=== PATIENT | male | born 1940 | race Caucasian/White ===

== ENCOUNTER 2016-11-16 16:25 | Inpatient (IN) | payer OTHER ==
[2016-11-16 18:38] LABS: BASOPHIL 0.5 % (0-2.0); EOSINOPHIL 0.1 % (0-4.5); MCH 30.6 pg (25.7-33.7); MCHC 32.8 g/dl (32.0-35.9); MEAN CELL VOLUME 93.4 fl (80-96); MEAN PLT VOLUME 9.4 fl (7.5-11.1); NEUTROPHILS 83.9 % (42.8-82.8); PLATELET COUNT 180 K/MM3 (134-434); RDW 17.4 % (11.9-15.9); WHITE BLOOD COUNT 6.9 K/mm3 (4.0-10.0)
[2016-11-16 18:56] LABS: INR 1.11 (0.82-1.09); PROTHROMBIN TIME (PATIENT) 12.2 SEC (9.98-11.88)
[2016-11-16 19:08] LABS: ALBUMIN 3.6 g/dl (3.4-5.0); ANION GAP 7 (8-16); CALCIUM 8.8 mg/dL (8.5-10.1); CO2 30 mmol/L (21-32); CREATININE 1.8 mg/dL (0.7-1.3); GLUCOSE,RANDOM 110 mg/dL (74-106); SGOT/AST 19 U/L (15-37); SGPT/ALT 35 U/L (12-78); TOT PROT 7.1 g/dl (6.4-8.2)
[2016-11-16 19:11] LABS: ALK PHOS 48 U/L (45-117); TROPONIN I < 0.02 ng/ml (0.00-0.05)
[2016-11-16 19:31] LABS: ARTERIAL BLD GAS O2 SATURATION 91.2 % (90-98.9); ARTERIAL BLOOD GAS BASE EXCESS 3.3 meq/l (-2-2); ARTERIAL BLOOD GAS HCO3 26.7 meq/L (22-26); ARTERIAL BLOOD GAS PO2 61.1 mmHg (70-100); ARTERIAL BLOOD GAS pH 7.46 (7.35-7.45)
[2016-11-16 19:32] LABS: ALLENS TEST POSITIVE; ART PUNCT SITE RIGHT RADIAL; LPM/O2% ROOM AIR; PT. ON O2? NO
[2016-11-16 19:33] LABS: METHEMOGLOBIN 0.7 % (0.4-1.5)
--- NOTE | 2016-11-16 19:45 | PDOC ---
History of Present Illness - General History Source: [facility] Records Exam Limitations: No Limitations - History of Present Illness Initial Comments: 11/16/16 20:05 The patient is a 76-year-old male from a senior living, with a significant past medical history of afib, CVA (lt middle cerebral artery stroke 2012), CHF, Dementia, hypothyroidism, who presents to the ED with a couple of months of worsening shortness of breath. Pt states that his symptoms are worse when he speaks and when he eats. The patient denies any fever, chills, cough, nausea, vomiting, diarrhea, or abdominal pain. The patient denies any chest pain or any lower extremity swelling. The patient denies any recent illness. <Allison Burgos - Last Filed: 11/16/16 20:04> - General History Source: Patient <Jaziel Medeiros - Last Filed: 11/20/16 20:01> - General Chief Complaint: Weakness Stated Complaint: DIFFICULTY BREATHING Time Seen by Provider: 11/16/16 19:18 Past History <Allison Burgos - Last Filed: 11/16/16 20:04> - Past Medical History Cardiac Disorders: Yes (a.fib) CVA: Yes (lt middle cerebral artery stroke 2012) CHF: Yes Dementia: Yes (MILD) Thyroid Disease: Yes (hypothyroid) - Surgical History Neurologic Surgery: Yes (CRANIOTOMY) - Psycho/Social/Smoking Cessation Hx Anxiety: No Suicidal Ideation: No Smoking History: Former smoker Have you smoked in the past 12 months: No Cigars Per Day: 1 Information on smoking cessation initiated: No 'Breaking Loose' booklet given: 03/14/16 Hx Alcohol Use: No Drug/Substance Use Hx: No Substance Use Type: None Hx Substance Use Treatment: No <Jaziel Medeiros - Last Filed: 11/20/16 20:01> - Past Medical History Allergies/Adverse Reactions: Allergies Allergy/AdvReac Type Severity Reaction Status Date / Time No Known Allergies Allergy Verified 11/16/16 16:44 Home Medications: Ambulatory Orders Cholecalciferol (Vitamin D3) [Vitamin D -] 400 unit PO DAILY 03/14/16 Testosterone Cypionate 200 mg IM ASDIR 03/14/16 Docusate Sodium [Colace -] 300 mg PO HS 03/21/16 Acetaminophen [Tylenol .Regular Strength -] 650 mg PO Q6H PRN #120 tablet Aclidinium [place] [Tudorza -] 1 puff IH BID #1 inhaler 03/29/16 Albuterol 0.083% Nebulizer Diana [Ventolin 0.083% Nebulizer Soln -] 1 amp NEB Q4H PRN #120 amp 03/29/16 Atorvastatin Ca [Lipitor] 10 mg PO HS #30 tablet 03/29/16 Rivaroxaban [Xarelto -] 15 mg PO DAILY #30 tablet 03/29/16 Budesonide/Formeterol Fumarate [SYMBICORT 160/4.5mcg -] 1 inh PO BID 05/17/16 Fludrocortisone Acetate 0.5 mg PO DAILY 05/17/16 Furosemide [Lasix -] 40 mg PO DAILY 05/17/16 Levomefolate/B6/B12/Algal Oil [Metanx Capsule] 1 each PO DAILY 05/17/16 Loratadine [Claritin] 10 mg PO DAILY 05/17/16 Polyethylene Glycol 3350 [Miralax 119 gm Btl -] 17 gm PO ASDIR 05/17/16 Artificial Tears Drops 1 drop OS BID 11/17/16 Carvedilol 6.25 mg PO BID 11/17/16 Cyclosporine Microemulsion 0.05 5ml BID 11/17/16 Fluticasone Prop 0.05% Nasal [Flonase -] 1 spray NS BID PRN 11/17/16 Hydrocortisone [Cortef -] 35 mg PO HS 11/17/16 Hydrocortisone [Cortef -] 40 mg PO DAILY 11/17/16 Levothyroxine [Synthroid -] 112 mcg PO DAILY 11/17/16 Potassium Chloride 20 meq PO DAILY 11/17/16 Review of Systems - Review of Systems Able to Perform ROS?: Yes Comments:: 11/16/16 20:05 CONSTITUTIONAL: Absent: fever, chills, diaphoresis, generalized weakness, malaise, loss of appetite HEENT: Absent: rhinorrhea, nasal congestion, throat pain, throat swelling, difficulty swallowing, mouth swelling, ear pain, eye pain, visual Changes CARDIOVASCULAR: Absent: chest pain, syncope, palpitations, irregular heart rate, lightheadedness , peripheral edema RESPIRATORY: Present: shortness of breath Absent: cough, dyspnea with exertion, orthopnea, wheezing, stridor, hemoptysis GASTROINTESTINAL: Absent: abdominal pain, abdominal distension, nausea, vomiting, diarrhea, constipation, melena, hematochezia GENITOURINARY: Absent: dysuria, frequency, urgency, hesitancy, hematuria, flank pain, genital pain MUSCULOSKELETAL: Absent: myalgia, arthralgia, joint swelling SKIN: Absent: rash, itching, pallor HEMATOLOGIC/IMMUNOLOGIC: Absent: easy bleeding, easy bruising, lymphadenopathy, frequent infections ENDOCRINE: Absent: unexplained weight gain, unexplained weight loss, heat intolerance, cold intolerance NEUROLOGIC: Absent: headache, focal weakness or paresthesias, dizziness, seizure, mental status changes, bladder or bowel incontinence PSYCHIATRIC: Absent: anxiety, depression, suicidal or homicidal ideation, hallucinations. <Allison Burgos - Last Filed: 11/16/16 20:04> *Physical Exam - Vital Signs Last Vital Signs Temp Pulse Resp BP Pulse Ox 97.5 F L 80 20 100/60 98 11/16/16 16:45 11/16/16 18:49 11/16/16 18:49 11/16/16 18:49 11/16/16 18:49 - Physical Exam Comments: 11/16/16 20:06 Awake and alert. No acute distress. HEENT: Normocephalic, atraumatic. PERRLA, EOMI. No conjunctival pallor. Sclera are non- icteric. Moist mucous membranes. Oropharynx is clear. NECK: Supple. Full ROM. No JVD. Carotid pulses 2+ and symmetric, without bruits. No thyromegaly. No lymphadenopathy. CARDIOVASCULAR: Regular rate and rhythm. No murmurs, rubs, or gallops. Distal pulses are 2+ and symmetric. PULMONARY: +Decreased breath sounds with faint crackles but his work of breathing is not strong. ABDOMINAL: Soft. Non-tender. Non-distended. No rebound or guarding. No organomegaly. Normoactive bowel sounds. MUSCULOSKELETAL Normal range of motion at all joints. No bony deformities or tenderness. No CVA tenderness. EXTREMITIES: No cyanosis. No clubbing. No edema. No calf tenderness. SKIN: Warm and dry. Normal capillary refill. No rashes. No jaundice. NEUROLOGICAL: Alert, awake, appropriate. Cooperative. Good eye contact. Appropriate mood and affect. <Allison Burgos - Last Filed: 11/16/16 20:04> - Vital Signs Last Vital Signs Temp Pulse Resp BP Pulse Ox 97.5 F L 80 20 100/60 98 11/16/16 16:45 11/16/16 18:49 11/16/16 18:49 11/16/16 18:49 11/16/16 18:49 <Jaziel Medeiros - Last Filed: 11/20/16 20:01> ED Treatment Course - LABORATORY CBC & Chemistry Diagram: 11/16/16 16:27 11/16/16 16:27 - ADDITIONAL ORDERS Additional order review: Laboratory Results 11/16/16 11/16/16 11/16/16 19:25 19:25 16:27 INR Puncture Site Right radial ABG pH 7.46 H ABG pCO2 at Pt Temp 37.8 ABG pO2 at Pt Temp 61.1 L ABG HCO3 26.7 H ABG O2 Sat (Measured) 91.2 ABG O2 Content 17.1 ABG Base Excess 3.3 H Osmin Test Positive Carboxyhemoglobin 1.3 Methemoglobin 0.7 O2 Delivery Device None Oxygen Flow Rate Room air PEEP 0.0 Sodium 140 Potassium 4.2 Chloride 103 Carbon Dioxide 30 Anion Gap 7 L BUN 17 D Creatinine 1.8 H D Creat Clearance w eGFR 36.97 Random Glucose 110 H D Calcium 8.8 Total Bilirubin 1.0 D AST 19 D ALT 35 Alkaline Phosphatase 48 Creatine Kinase 64 Troponin I < 0.02 B-Natriuretic Peptide 1468.92 H Total Protein 7.1 D Albumin 3.6 D 11/16/16 16:27 INR 1.11 Puncture Site ABG pH ABG pCO2 at Pt Temp ABG pO2 at Pt Temp ABG HCO3 ABG O2 Sat (Measured) ABG O2 Content ABG Base Excess Osmin Test Carboxyhemoglobin Methemoglobin O2 Delivery Device Oxygen Flow Rate PEEP Sodium Potassium Chloride Carbon Dioxide Anion Gap BUN Creatinine Creat Clearance w eGFR Random Glucose Calcium Total Bilirubin AST ALT Alkaline Phosphatase Creatine Kinase Troponin I B-Natriuretic Peptide Total Protein Albumin 11/16/16 16:27 RBC 4.49 MCV 93.4 MCHC 32.8 RDW 17.4 H D MPV 9.4 D Neutrophils % 83.9 H Lymphocytes % 10.1 D Monocytes % 5.4 Eosinophils % 0.1 D Basophils % 0.5 <Allison Burgos - Last Filed: 11/16/16 20:04> - LABORATORY CBC & Chemistry Diagram: 11/19/16 05:35 11/19/16 05:35 - ADDITIONAL ORDERS Additional order review: Laboratory Results 11/16/16 11/16/16 11/16/16 19:25 19:25 16:27 INR Puncture Site Right radial ABG pH 7.46 H ABG pCO2 at Pt Temp 37.8 ABG pO2 at Pt Temp 61.1 L ABG HCO3 26.7 H ABG O2 Sat (Measured) 91.2 ABG O2 Content 17.1 ABG Base Excess 3.3 H Osmin Test Positive Carboxyhemoglobin 1.3 Methemoglobin 0.7 O2 Delivery Device None Oxygen Flow Rate Room air PEEP 0.0 Sodium 140 Potassium 4.2 Chloride 103 Carbon Dioxide 30 Anion Gap 7 L BUN 17 D Creatinine 1.8 H D Creat Clearance w eGFR 36.97 Random Glucose 110 H D Calcium 8.8 Total Bilirubin 1.0 D AST 19 D ALT 35 Alkaline Phosphatase 48 Creatine Kinase 64 Troponin I < 0.02 B-Natriuretic Peptide 1468.92 H Total Protein 7.1 D Albumin 3.6 D 11/16/16 16:27 INR 1.11 Puncture Site ABG pH ABG pCO2 at Pt Temp ABG pO2 at Pt Temp ABG HCO3 ABG O2 Sat (Measured) ABG O2 Content ABG Base Excess Osmin Test Carboxyhemoglobin Methemoglobin O2 Delivery Device Oxygen Flow Rate PEEP Sodium Potassium Chloride Carbon Dioxide Anion Gap BUN Creatinine Creat Clearance w eGFR Random Glucose Calcium Total Bilirubin AST ALT Alkaline Phosphatase Creatine Kinase Troponin I B-Natriuretic Peptide Total Protein Albumin 11/16/16 16:27 RBC 4.49 MCV 93.4 MCHC 32.8 RDW 17.4 H D MPV 9.4 D Neutrophils % 83.9 H Lymphocytes % 10.1 D Monocytes % 5.4 Eosinophils % 0.1 D Basophils % 0.5 <Jaziel Medeiros - Last Filed: 11/20/16 20:01> Medical Decision Making - Medical Decision Making 11/16/16 19:56 Dr. Shoemaker was paged and notified via phone service. <Allison Burgos - Last Filed: 11/16/16 20:04> - Medical Decision Making 11/20/16 20:01 Dr. Medeiros: The scribe's documentation has been prepared under my direction and personally reviewed by me in its entirery. I confirm that the note above accurately reflects all work, treatment, procedures, and medical decision making performed by me. <Jaziel Medeiros - Last Filed: 11/20/16 20:01> *DC/Admit/Observation/Transfer - Attestations Scribe Attestion: 11/16/16 20:13 Documentation prepared by Allison Burgos, acting as medical record coder for Jaziel Medeiros MD. <Allison Burgos - Last Filed: 11/16/16 20:04> - Discharge Dispostion Admit: Yes <Jaziel Medeiros - Last Filed: 11/20/16 20:01> Diagnosis at time of Disposition: CHF (congestive heart failure), Weakness - Discharge Dispostion Disposition: AGAINST MEDICAL ADVICE - Referrals
[2016-11-16] MEDS ORDERED: FUROSEMIDE 40 MG/4 ML INJECTABLE VIAL IVPUSH ONE (19:53)
[2016-11-16] MEDS ORDERED: FUROSEMIDE 40 MG/4 ML INJECTABLE VIAL ONE (20:09)
[2016-11-16] MEDS ORDERED: ACETAMINOPHEN 325 MG TABLET (FP) PO PRN (21:14)
[2016-11-16] MEDS ORDERED: HEPARIN NA (PORCINE) 5,000 UNITS/ML 1ML VIAL SQ SCH (22:00)
[2016-11-16] MEDS: ATORVASTATIN CA 10 MG TABLET (FP) PO SCH (22:35)
[2016-11-16 23:02] LABS: URINE APPEARANCE CLEAR; URINE BILIRUBIN NEGATIVE (NEGATIVE); URINE BLOOD NEGATIVE (NEGATIVE); URINE COLOR STRAW; URINE GLUCOSE (UA) NEGATIVE (NEGATIVE); URINE KETONE NEGATIVE (NEGATIVE); URINE LEUK ESTERASE NEGATIVE (NEGATIVE); URINE NITRITE NEGATIVE (NEGATIVE); URINE PROTEIN NEGATIVE (NEGATIVE); URINE UROBILINOGEN NEGATIVE E.U./dl (0.2-1.0)
[2016-11-16 23:26] VITALS: BMI 32.1
[2016-11-17] MEDS ORDERED: HYDROCORTISONE SOD SUCCINATE 2 ML ONE (01:03)
[2016-11-17] MEDS: HYDROCORTISONE SOD SUCCINATE 100 MG/2 ML VIAL IVPB SCH ×3 (01:06→16:25)
[2016-11-17] MEDS ORDERED: LEVOTHYROXINE NA 100 MCG TABLET (FP) PO SCH (07:00)
[2016-11-17 08:01] LABS: ALBUMIN 3.3 g/dl (3.4-5.0); ANION GAP 10 (8-16); CALCIUM 8.3 mg/dL (8.5-10.1); CO2 25 mmol/L (21-32); CREATININE 1.7 mg/dL (0.7-1.3); GLUCOSE,RANDOM 93 mg/dL (74-106); MAGNESIUM 2.2 mg/dL (1.8-2.4); SGOT/AST 18 U/L (15-37); SGPT/ALT 31 U/L (12-78)
[2016-11-17 08:04] LABS: BASOPHIL 0.3 % (0-2.0); EOSINOPHIL 0.1 % (0-4.5); MCH 31.5 pg (25.7-33.7); MCHC 34.2 g/dl (32.0-35.9); MEAN CELL VOLUME 92.3 fl (80-96); MEAN PLT VOLUME 9.3 fl (7.5-11.1); NEUTROPHILS 86.1 % (42.8-82.8); PLATELET COUNT 154 K/MM3 (134-434); RDW 17.4 % (11.9-15.9); WHITE BLOOD COUNT 7.9 K/mm3 (4.0-10.0)
[2016-11-17 08:05] LABS: ALK PHOS 43 U/L (45-117); TOT PROT 6.7 g/dl (6.4-8.2); TROPONIN I < 0.02 ng/ml (0.00-0.05)
--- NOTE | 2016-11-17 08:39 | HP ---
Admitting History and Physical - Admission History of Present Illness: The patient is a 76-year-old male from a snf, with a significant past medical history of afib, CVA (lt middle cerebral artery stroke 2012), CHF, Dementia, hypothyroidism, who presents to the ED with a couple of months of worsening shortness of breath. Pt states that his symptoms are worse when he speaks and when he eats. 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) Cardiovascular: Yes: AFIB, CHF (HFrEF), HTN, Hyperlipdemia Musculoskeletal: Yes: Other (scoliosis) Endocrine: Yes: Hypothyroidism, Other (acromegaly s/p pituitary excision & currently on hydrocortisone) - Past Surgical History Past Surgical History: Yes: Craniotomy - Smoking History Smoking history: Former smoker Have you smoked in the past 12 months: No - Alcohol/Substance Use Hx Alcohol Use: Yes (SOCIALLY) - Social History Occupation: worked as a "[employer]" Home Medications - Allergies Allergies/Adverse Reactions: Allergies Allergy/AdvReac Type Severity Reaction Status Date / Time No Known Allergies Allergy Verified 11/16/16 16:44 - Home Medications Home Medications: Ambulatory Orders Cholecalciferol (Vitamin D3) [Vitamin D -] 400 unit PO DAILY 03/14/16 Memantine HCl 5 mg PO BID 03/14/16 Testosterone Cypionate 200 mg IM ASDIR 03/14/16 Docusate Sodium [Colace -] 200 mg PO DAILY 03/21/16 Acetaminophen [Tylenol .Regular Strength -] 650 mg PO Q6H PRN #120 tablet Aclidinium [place] [Tudorza -] 1 puff IH BID #1 inhaler 03/29/16 Albuterol 0.083% Nebulizer Diana [Ventolin 0.083% Nebulizer Soln -] 1 amp NEB Q4H PRN #120 amp 03/29/16 Atorvastatin Ca [Lipitor] 10 mg PO HS #30 tablet 03/29/16 Fluticasone Prop 0.05% Nasal [Flonase -] 1 spray NS BID #1 spray 03/29/16 Hydrocortisone [Cortef -] 35 mg PO BID #240 tablet 03/29/16 Levothyroxine [Synthroid -] 100 mcg PO DAILY@0700 #30 tablet 03/29/16 Rivaroxaban [Xarelto -] 15 mg PO DAILY #30 tablet 03/29/16 Budesonide/Formeterol Fumarate [SYMBICORT 160/4.5mcg -] 1 inh PO BID 05/17/16 Fludrocortisone Acetate 0.1 mg PO DAILY 05/17/16 Furosemide [Lasix -] 20 mg PO DAILY 05/17/16 Levomefolate/B6/B12/Algal Oil [Metanx Capsule] 1 each PO DAILY 05/17/16 Loratadine [Claritin] 10 mg PO DAILY 05/17/16 Polyethylene Glycol 3350 [Miralax 119 gm Btl -] 17 gm PO ASDIR 05/17/16 Cholecalciferol (Vitamin D3) [Vitamin D -] 400 unit PO DAILY tab 05/25/16 Metoprolol Succinate [Toprol XL -] 25 mg PO DAILY tab.sr.24h 05/25/16 Review of Systems - Review of Systems Cardiovascular: reports: Shortness of Breath. denies: Chest Pain Respiratory: reports: SOB, SOB on Exertion Gastrointestinal: denies: Abdominal Pain Genitourinary: reports: No Symptoms Musculoskeletal: reports: Muscle Weakness Physical Examination Vital Signs: Vital Signs Temperature 97.2 F L 11/17/16 06:00 Pulse Rate 80 11/17/16 06:00 Respiratory Rate 18 11/17/16 06:00 Blood Pressure 126/75 11/17/16 06:00 O2 Sat by Pulse Oximetry (%) 95 11/17/16 06:00 Cardiovascular: Yes: S1, S2 Respiratory: Yes: Diminished Gastrointestinal: Yes: Normal Bowel Sounds, Soft Edema: No Labs: CBC, BMP 11/17/16 06:00 11/17/16 06:00 Problem List - Problems (1) CHF (congestive heart failure) Assessment/Plan: IV LASIX CARDIO ECHO Code(s): I50.9 - HEART FAILURE, UNSPECIFIED (2) Weakness Assessment/Plan: PT Code(s): R53.1 - WEAKNESS (3) CKD (chronic kidney disease) Assessment/Plan: MONITOR RENAL FUNCTION ON DIURETICS Code(s): N18.9 - CHRONIC KIDNEY DISEASE, UNSPECIFIED Qualifiers: Chronic kidney disease stage: stage 2 (mild) Qualified Code(s): N18.2 - Chronic kidney disease, stage 2 (mild) (4) Dilated cardiomyopathy Assessment/Plan: ECHO CARDIO Code(s): I42.0 - DILATED CARDIOMYOPATHY (5) Dyspnea Assessment/Plan: ABOVE Code(s): R06.00 - DYSPNEA, UNSPECIFIED (6) Hypothyroid Assessment/Plan: ON SYNTHROID ENDO Code(s): E03.9 - HYPOTHYROIDISM, UNSPECIFIED (7) Panhypopituitarism Assessment/Plan: ON SYNTHROID AND SOLUORTEF ENDO Code(s): E23.0 - HYPOPITUITARISM (8) Ventricular arrhythmia Assessment/Plan: ON TELE CARDIO Code(s): I49.9 - CARDIAC ARRHYTHMIA, UNSPECIFIED
[2016-11-17] MEDS ORDERED: PT OWN MED DRAWER 7, Y5N ONE ×2 (09:09→13:05)
[2016-11-17] MEDS: DOCUSATE SODIUM 100 MG CAPSULE (FP) PO SCH (09:13)
[2016-11-17] MEDS: CARVEDILOL 6.25 MG TABLET (FP) PO SCH ×2 (09:13→22:12)
[2016-11-17] MEDS: RIVAROXABAN 15 MG TABLET PO SCH (09:13)
[2016-11-17] MEDS: LORATADINE 10 MG TABLET PO SCH (09:14)
[2016-11-17] MEDS: CHOLECALCIFEROL (VITAMIN D3) 400 UNIT TABLET (FP) PO SCH (09:14)
[2016-11-17] MEDS: FUROSEMIDE 40 MG/4 ML INJECTABLE VIAL IVPB SCH (09:14)
--- NOTE | 2016-11-17 10:36 | EKG ---
Test Reason : Blood Pressure : / mmHG Vent. Rate : 088 BPM Atrial Rate : 131 BPM P-R Int : 000 ms QRS Dur : 112 ms QT Int : 418 ms P-R-T Axes : 000 -29 054 degrees QTc Int : 505 ms ATRIAL FIBRILLATION WITH PREMATURE VENTRICULAR OR ABERRANTLY CONDUCTED COMPLEXES CANNOT RULE OUT INFERIOR INFARCT PROLONGED QT ABNORMAL ECG Confirmed by DENISE MUSA MD ([id number]) on 11/17/2016 10:36:13 AM Referred By: Confirmed By:DENISE MUSA MD
[2016-11-17] MEDS: ALBUTEROL SO4 2.5/IPRATROPIUM 0.5 INH SOL 3 ML VIAL.NEB. NEB SCH ×2 (12:00→17:14)
[2016-11-17] MEDS: POLYETHYLENE GLYCOL 3350 119 GM BTL PO SCH (12:52)
[2016-11-17] MEDS: FLUTICASONE PROP 0.05% 16 GM NASAL SPRAY NS SCH (12:52)
[2016-11-17] MEDS: BUDESONIDE/FORMETEROL FUMARATE 160/4.5 mcg INHALER IH SCH ×2 (12:52→23:57)
--- NOTE | 2016-11-17 13:57 | PN ---
Progress Note (short form) - Note Progress Note: PULMONARY CONSULTATION DICTATED 11/17/16 IMP DYSPNEA CHF CARDIOMYOPATHY AFIB ACROMEGALY S/P CVA COPD PANHYPOPITUITARISM MILD DEMENTIA CKD ACENDING AORTIC ANEURYSM PLAN LASIX O2 INHALED BRONCHODILATORS SOLUCORTEF HORMONAL REPLACEMENT DAILY WTS MONITOR MIREYA RETANA Problem List - Problems (1) CHF (congestive heart failure) Code(s): I50.9 - HEART FAILURE, UNSPECIFIED (2) Weakness Code(s): R53.1 - WEAKNESS (3) Acromegaly Code(s): E22.0 - ACROMEGALY AND PITUITARY GIGANTISM (4) Afib Code(s): I48.91 - UNSPECIFIED ATRIAL FIBRILLATION Qualifiers: Atrial fibrillation type: persistent Qualified Code(s): I48.1 - Persistent atrial fibrillation (5) CKD (chronic kidney disease) Code(s): N18.9 - CHRONIC KIDNEY DISEASE, UNSPECIFIED Qualifiers: Chronic kidney disease stage: stage 2 (mild) Qualified Code(s): N18.2 - Chronic kidney disease, stage 2 (mild) (6) Dilated cardiomyopathy Code(s): I42.0 - DILATED CARDIOMYOPATHY (7) Dysphagia as late effect of cerebrovascular accident (CVA) Code(s): I69.391 - DYSPHAGIA FOLLOWING CEREBRAL INFARCTION (8) Dyspnea Code(s): R06.00 - DYSPNEA, UNSPECIFIED (9) Hypothyroid Code(s): E03.9 - HYPOTHYROIDISM, UNSPECIFIED (10) Panhypopituitarism Code(s): E23.0 - HYPOPITUITARISM (11) Shortness of breath Code(s): R06.02 - SHORTNESS OF BREATH
--- NOTE | 2016-11-17 16:03 | CON.CARD ---
Consult Consult Specialty:: Cardiology Consult Reason for Consultation:: CHF - History of Present Illness Chief Complaint: PALACIO History of Present Illness: This is a 76 year old male, NHR, with a PMH of AFIB, past CVA in 2012, known CHF , hypothyroidism and dementia. He presents to the ED with SOB, worsening over several weeks. Troponin level negative x 2. 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) Cardio/Vascular: Yes: AFIB, CHF (HFrEF), HTN, Hyperlipdemia Musculoskeletal: Yes: Other (scoliosis) Endocrine: Yes: Hypothyroidism, Other (acromegaly s/p pituitary excision & currently on hydrocortisone) - Past Surgical History Past Surgical History: Yes: Craniotomy - Alcohol/Substance Use Hx Alcohol Use: Yes (SOCIALLY) - Smoking History Smoking history: Former smoker Have you smoked in the past 12 months: No - Social History Occupation: worked as a "[employer]" Home Medications - Allergies Allergies/Adverse Reactions: Allergies Allergy/AdvReac Type Severity Reaction Status Date / Time No Known Allergies Allergy Verified 11/16/16 16:44 - Home Medications Home Medications: Ambulatory Orders Cholecalciferol (Vitamin D3) [Vitamin D -] 400 unit PO DAILY 03/14/16 Testosterone Cypionate 200 mg IM ASDIR 03/14/16 Docusate Sodium [Colace -] 300 mg PO HS 03/21/16 Acetaminophen [Tylenol .Regular Strength -] 650 mg PO Q6H PRN #120 tablet Aclidinium [place] [Tudorza -] 1 puff IH BID #1 inhaler 03/29/16 Albuterol 0.083% Nebulizer Diana [Ventolin 0.083% Nebulizer Soln -] 1 amp NEB Q4H PRN #120 amp 03/29/16 Atorvastatin Ca [Lipitor] 10 mg PO HS #30 tablet 03/29/16 Rivaroxaban [Xarelto -] 15 mg PO DAILY #30 tablet 03/29/16 Budesonide/Formeterol Fumarate [SYMBICORT 160/4.5mcg -] 1 inh PO BID 05/17/16 Fludrocortisone Acetate 0.5 mg PO DAILY 05/17/16 Furosemide [Lasix -] 40 mg PO DAILY 05/17/16 Levomefolate/B6/B12/Algal Oil [Metanx Capsule] 1 each PO DAILY 05/17/16 Loratadine [Claritin] 10 mg PO DAILY 05/17/16 Polyethylene Glycol 3350 [Miralax 119 gm Btl -] 17 gm PO ASDIR 05/17/16 Artificial Tears Drops 1 drop OS BID 11/17/16 Carvedilol 6.25 mg PO BID 11/17/16 Cyclosporine Microemulsion 0.05 5ml BID 11/17/16 Fluticasone Prop 0.05% Nasal [Flonase -] 1 spray NS BID PRN 11/17/16 Hydrocortisone [Cortef -] 35 mg PO HS 11/17/16 Hydrocortisone [Cortef -] 40 mg PO DAILY 11/17/16 Levothyroxine [Synthroid -] 112 mcg PO DAILY 11/17/16 Potassium Chloride 20 meq PO DAILY 11/17/16 Review of Systems Unable to obtain ROS, reason: As per HPI Vital Signs: Vital Signs Temperature 98.2 F 11/17/16 15:26 Pulse Rate 80 11/17/16 15:26 Respiratory Rate 20 11/17/16 15:26 Blood Pressure 107/57 11/17/16 15:26 O2 Sat by Pulse Oximetry (%) 95 11/17/16 09:00 Constitutional: Yes: No Distress Neck: Yes: WNL Respiratory: Yes: Other (Minimal basilar crackles bilaterally) Gastrointestinal: Yes: Soft Cardiovascular: Yes: Other (Irregular rate and rhytm. NL S1S2, no MRHG.) Extremities: Yes: WNL Edema: No Neurological: Yes: Other (Grossly non focal) - Other Data Labs, Other Data: CBC, BMP 11/17/16 06:00 11/17/16 06:00 INR, PTT INR 1.11 (0.82-1.09) 11/16/16 16:27 Troponin, BNP 11/17/16 06:00 Troponin I < 0.02 Troponin, BNP 11/17/16 06:00 Troponin I < 0.02 Assessment/Plan [facility] *LIVE* CHF Combined systolic and diastolic heart failure Acute on Chronic Would give Lasix 40 mg IVSS BID for 24 to 48 hours Daily WT's/Lytes/I's/O's Continue Metoprolol Succinate 25 mg daily Would consider adding and ROSEY (and aldactone) when euvolemic AFIB Continue rate control with Metoprolol Continue AC with Xarelto 15 mg daily Moderate dilation of the ascending aorta I would favor a conservative approach and not to do a Chest CT at this time. His Cr is 1.8 and IV contrast may lead to worsening renal function. Also, given his clinical overall status, he is a poor candidate for surgery involving the aortic arch. Will follow with you.
[2016-11-17] MEDS: INSULIN SLIDING SCALE (NOVOLOG) 1 VIAL SQ SCH ×2 (16:04→22:12)
--- NOTE | 2016-11-17 16:05 | CONS ---
DATE OF CONSULTATION: 11/17/2016 PULMONARY CONSULTATION REFERRING PHYSICIAN: Anel Evans MD HISTORY OF PRESENT ILLNESS: The patient is a 76-year-old white male, a longterm resident, past medical history of atrial fibrillation, panhypopituitarism, acromegaly, CVA of the right middle cerebral artery in 2012, CHF, dementia and hypothyroidism, admitted to [facility] on November 16 with increasing shortness of breath, increasing when he speaks and eats. The patient denied any chest pain, denied any fever or chills, denied any cough or hemoptysis. The patient presented to the emergency room In the emergency room, he was felt to have possible mild CHF. He was admitted to the telemetry unit for further management. The patient has a history of tobacco use and quit a few years ago. There is no history of occupational exposures. There is no history of recent travel. He denies any hemoptysis, denies any chest pain or palpitations. There is no history of weight loss or night sweats. There is no history of hemoptysis. PAST MEDICAL HISTORY: Includes panhypopituitarism, acromegaly, CHF, hypothyroidism, atrial fibrillation, chronic kidney disease, history of CVA. CURRENT MEDICATIONS: Include Symbicort 160/4.5, Solu-Cortef, Xarelto, Tylenol, DuoNeb, Coreg, Colace, MiraLAX, Flonase, Lipitor, Synthroid, vitamin D3. REVIEW OF SYSTEMS: No orthopnea, no PND, no chest pain, no palpitations. Positive dyspnea occasionally at rest and with exertion, talking and eating. No abdominal pain, no headaches, no fevers, no lower extremity edema. PHYSICAL EXAMINATION: General: The patient is a well-developed, well-nourished male, awake, alert, in no acute distress. Vitals: He is afebrile. Blood pressure 104/68. Respiratory rate is 18. O2 saturation 95% on 2 L. HEENT: Normocephalic, atraumatic. Neck: Supple. Heart: Irregular, with normal S1 and S2. Chest: Clear. Abdomen: Soft. Bowel sounds are positive. Extremities: Without cyanosis or edema. DIAGNOSTIC STUDIES: WBC 7.9; hemoglobin 13.8; hematocrit 40.3; platelet count 154,000. INR 1.11. Blood gas pH 7.46, pCO2 of 37, pO2 of 61, bicarbonate 26, saturation 91 on room air. BUN 17, creatinine 1.7. BNP 1468. Echocardiogram shows severe LV dysfunction, mild mitral regurgitation, a moderately dilated ascending aorta. Chest x-ray shows no acute disease. IMPRESSION: 1. Dyspnea most likely secondary to mild decompensated congestive heart failure. 2. History of chronic obstructive pulmonary disease. 3. Panhypopituitarism. 4. Atrial fibrillation. 5. History of cerebrovascular accident. 6. Scoliosis. 7. Right eye blindness. 8. Chronic kidney disease. PLAN: Inhaled bronchodilators, Lasix, daily weights, supplemental oxygen. Continue hormone replacement, and anticoagulation. Thank you for this consultation. We will follow closely with you. ELIGIO RETANA M.D. [id number]
--- NOTE | 2016-11-17 17:13 | CONSULT ---
Consult Consult Specialty:: Cardiology Referred by:: Dr Evans Reason for Consultation:: SOB - History of Present Illness Chief Complaint: SOB History of Present Illness: I was called to see this patient in consultation. After reviewing chart, I went in to see him. When I came back to write my note, I saw a note from Dr cullen. I think he was also called on the patient. I am therefore cancelling this consult note , as there cannot be 2 cardio consults. Thank you! I will let Dr Evans know. PMH Atrial fibrillation chronic, on xarelto Coronary artery disease prior inf and apical SD per 12/18/14 treadmill nuclear stress test at [facility] CHF (congestive heart failure) diastolic, dx'ed many ya. Subsequently became systolic. Admitted to [facility] on [id number] with CHF. Again admitted on 03/20/16 with SOB -. lethargic, BNP was 2084 (3348 prior) -. 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) Cardio/Vascular: Yes: AFIB, CHF (HFrEF), HTN, Hyperlipdemia Musculoskeletal: Yes: Other (scoliosis) Endocrine: Yes: Hypothyroidism, Other (acromegaly s/p pituitary excision & currently on hydrocortisone) - Past Surgical History Past Surgical History: Yes: Craniotomy - Alcohol/Substance Use Hx Alcohol Use: Yes (SOCIALLY) - Smoking History Smoking history: Former smoker Have you smoked in the past 12 months: No - Social History Occupation: worked as a "[employer]" Home Medications - Allergies Allergies/Adverse Reactions: Allergies Allergy/AdvReac Type Severity Reaction Status Date / Time No Known Allergies Allergy Verified 11/16/16 16:44 - Home Medications Home Medications: Ambulatory Orders Cholecalciferol (Vitamin D3) [Vitamin D -] 400 unit PO DAILY 03/14/16 Testosterone Cypionate 200 mg IM ASDIR 03/14/16 Docusate Sodium [Colace -] 300 mg PO HS 03/21/16 Acetaminophen [Tylenol .Regular Strength -] 650 mg PO Q6H PRN #120 tablet Aclidinium [place] [Tudorza -] 1 puff IH BID #1 inhaler 03/29/16 Albuterol 0.083% Nebulizer Diana [Ventolin 0.083% Nebulizer Soln -] 1 amp NEB Q4H PRN #120 amp 03/29/16 Atorvastatin Ca [Lipitor] 10 mg PO HS #30 tablet 03/29/16 Rivaroxaban [Xarelto -] 15 mg PO DAILY #30 tablet 03/29/16 Budesonide/Formeterol Fumarate [SYMBICORT 160/4.5mcg -] 1 inh PO BID 05/17/16 Fludrocortisone Acetate 0.5 mg PO DAILY 05/17/16 Furosemide [Lasix -] 40 mg PO DAILY 05/17/16 Levomefolate/B6/B12/Algal Oil [Metanx Capsule] 1 each PO DAILY 05/17/16 Loratadine [Claritin] 10 mg PO DAILY 05/17/16 Polyethylene Glycol 3350 [Miralax 119 gm Btl -] 17 gm PO ASDIR 05/17/16 Artificial Tears Drops 1 drop OS BID 11/17/16 Carvedilol 6.25 mg PO BID 11/17/16 Cyclosporine Microemulsion 0.05 5ml BID 11/17/16 Fluticasone Prop 0.05% Nasal [Flonase -] 1 spray NS BID PRN 11/17/16 Hydrocortisone [Cortef -] 35 mg PO HS 11/17/16 Hydrocortisone [Cortef -] 40 mg PO DAILY 11/17/16 Levothyroxine [Synthroid -] 112 mcg PO DAILY 11/17/16 Potassium Chloride 20 meq PO DAILY 11/17/16 Family Disease History - Family Disease History Family History: Denies (premature CAD) Review of Systems - Review of Systems Constitutional: reports: Weakness Eyes: reports: No Symptoms HENT: reports: No Symptoms Neck: reports: No Symptoms Cardiovascular: reports: Shortness of Breath Respiratory: reports: SOB Gastrointestinal: reports: No Symptoms Musculoskeletal: reports: Muscle Weakness Neurological: reports: No Symptoms Psychiatric: reports: Depression Physical Exam Vital Signs: Vital Signs Temperature 98.2 F 11/17/16 15:26 Pulse Rate 80 11/17/16 15:26 Respiratory Rate 20 11/17/16 15:26 Blood Pressure 107/57 11/17/16 15:26 O2 Sat by Pulse Oximetry (%) 95 11/17/16 09:00 Constitutional: Yes: No Distress Eyes: Yes: Conjunctiva Clear HENT: Yes: Atraumatic Neck: Yes: Supple Cardiovascular: Yes: Pulse Irregular. No: Murmur Respiratory: Yes: CTA Bilaterally Gastrointestinal: Yes: Normal Bowel Sounds, Soft, Abdomen, Obese. No: Tenderness Extremities: Yes: Other (warm) Edema: No Peripheral Pulses WNL: Yes Neurological: Yes: Alert, Oriented Psychiatric: Yes: Alert, Oriented Labs: CBC, BMP 11/17/16 06:00 11/17/16 06:00 Imaging - Results Chest X-ray: Report Reviewed, Image Reviewed EKG: Report Reviewed, Image Reviewed (afib with PVC vs aberrancy, prolonged QT)
[2016-11-17] MEDS: ATORVASTATIN CA 10 MG TABLET (FP) PO SCH (22:12)
--- NOTE | 2016-11-17 23:52 | CONSULT ---
Consult Consult Specialty:: endocrine Referred by:: erin meraz Reason for Consultation:: panhypopit - History of Present Illness Chief Complaint: weakness and difficulty breathing History of Present Illness: 76-year-old male from a custodial, with a significant past medical history of panhypotpit,pituitary tumor resection,acromegay,on hrt, afib, CVA (lt middle cerebral artery stroke 2012), CHF, Dementia, hypothyroidism, who presents to the ED with a couple of months of worsening shortness of breath. 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) Cardio/Vascular: Yes: AFIB, CHF (HFrEF), HTN, Hyperlipdemia Musculoskeletal: Yes: Other (scoliosis) Endocrine: Yes: Hypothyroidism, Other (acromegaly s/p pituitary excision & currently on hydrocortisone) - Past Surgical History Past Surgical History: Yes: Craniotomy - Alcohol/Substance Use Hx Alcohol Use: Yes (SOCIALLY) - Smoking History Smoking history: Former smoker Have you smoked in the past 12 months: No - Social History 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" Home Medications - Allergies Allergies/Adverse Reactions: Allergies Allergy/AdvReac Type Severity Reaction Status Date / Time No Known Allergies Allergy Verified 11/16/16 16:44 - Home Medications Home Medications: Ambulatory Orders Cholecalciferol (Vitamin D3) [Vitamin D -] 400 unit PO DAILY 03/14/16 Testosterone Cypionate 200 mg IM ASDIR 03/14/16 Docusate Sodium [Colace -] 300 mg PO HS 03/21/16 Acetaminophen [Tylenol .Regular Strength -] 650 mg PO Q6H PRN #120 tablet Aclidinium [place] [Tudorza -] 1 puff IH BID #1 inhaler 03/29/16 Albuterol 0.083% Nebulizer Diana [Ventolin 0.083% Nebulizer Soln -] 1 amp NEB Q4H PRN #120 amp 03/29/16 Atorvastatin Ca [Lipitor] 10 mg PO HS #30 tablet 03/29/16 Rivaroxaban [Xarelto -] 15 mg PO DAILY #30 tablet 03/29/16 Budesonide/Formeterol Fumarate [SYMBICORT 160/4.5mcg -] 1 inh PO BID 05/17/16 Fludrocortisone Acetate 0.5 mg PO DAILY 05/17/16 Furosemide [Lasix -] 40 mg PO DAILY 05/17/16 Levomefolate/B6/B12/Algal Oil [Metanx Capsule] 1 each PO DAILY 05/17/16 Loratadine [Claritin] 10 mg PO DAILY 05/17/16 Polyethylene Glycol 3350 [Miralax 119 gm Btl -] 17 gm PO ASDIR 05/17/16 Artificial Tears Drops 1 drop OS BID 11/17/16 Carvedilol 6.25 mg PO BID 11/17/16 Cyclosporine Microemulsion 0.05 5ml BID 11/17/16 Fluticasone Prop 0.05% Nasal [Flonase -] 1 spray NS BID PRN 11/17/16 Hydrocortisone [Cortef -] 35 mg PO HS 11/17/16 Hydrocortisone [Cortef -] 40 mg PO DAILY 11/17/16 Levothyroxine [Synthroid -] 112 mcg PO DAILY 11/17/16 Potassium Chloride 20 meq PO DAILY 11/17/16 Review of Systems - Review of Systems Constitutional: reports: Lethargy, Weakness Eyes: reports: No Symptoms HENT: reports: No Symptoms Neck: reports: No Symptoms Cardiovascular: reports: Palpitations, Shortness of Breath Respiratory: reports: Exercise Intolerance, Orthopnea, SOB on Exertion Gastrointestinal: reports: Bloating, Constipation Genitourinary: reports: No Symptoms Breasts: reports: No Symptoms Reported Musculoskeletal: reports: Muscle Cramps, Muscle Weakness Integumentary: reports: No Symptoms Neurological: reports: Weakness Endocrine: reports: Unexplained Weight Gain Hematology/Lymphatic: reports: No Symptoms Physical Exam Vital Signs: Vital Signs Temperature 97.8 F 11/17/16 22:00 Pulse Rate 80 11/17/16 22:00 Respiratory Rate 18 11/17/16 22:00 Blood Pressure 112/54 11/17/16 22:00 O2 Sat by Pulse Oximetry (%) 96 11/17/16 20:52 Constitutional: Yes: Calm Eyes: Yes: EOM Intact HENT: Yes: Normocephalic Neck: Yes: Trachea Midline Cardiovascular: Yes: Tachycardia, Pulse Irregular Respiratory: Yes: SOB, Tachypnea Gastrointestinal: No: Soft ...Rectal Exam: Yes: Deferred Renal/: Yes: WNL Breast(s): Yes: WNL Musculoskeletal: Yes: Muscle Weakness Extremities: Yes: WNL Edema: No Integumentary: Yes: WNL Neurological: Yes: Alert, Oriented Psychiatric: Yes: Alert Labs: CBC, BMP 11/17/16 06:00 11/17/16 06:00 Problem List - Problems (1) CHF (congestive heart failure) Code(s): I50.9 - HEART FAILURE, UNSPECIFIED (2) Weakness Code(s): R53.1 - WEAKNESS (3) Acromegaly Code(s): E22.0 - ACROMEGALY AND PITUITARY GIGANTISM (4) Afib Code(s): I48.91 - UNSPECIFIED ATRIAL FIBRILLATION Qualifiers: Atrial fibrillation type: persistent Qualified Code(s): I48.1 - Persistent atrial fibrillation Assessment/Plan Current Active Problems CHF (congestive heart failure) (Acute) Weakness (Acute) panhypopituitary sp pituitary tumor resection acromegaly history of resection pituitary tumor Abnormal Lab Results 11/17/16 11/17/16 06:00 06:00 RDW 17.4 H Neutrophils % 86.1 H Creatinine 1.7 H Calcium 8.3 L Alkaline Phosphatase 43 L Albumin 3.3 L Laboratory Results - last 24 hr 11/16/16 11/17/16 11/17/16 22:47 06:00 06:00 WBC 7.9 RBC 4.37 Hgb 13.8 Hct 40.3 MCV 92.3 MCHC 34.2 RDW 17.4 H Plt Count 154 MPV 9.3 Neutrophils % 86.1 H Lymphocytes % 8.8 Monocytes % 4.7 Eosinophils % 0.1 Basophils % 0.3 Sodium 139 Potassium 3.9 Chloride 104 Carbon Dioxide 25 Anion Gap 10 BUN 17 Creatinine 1.7 H Creat Clearance w eGFR 39.49 POC Glucometer Random Glucose 93 Calcium 8.3 L Magnesium 2.2 Total Bilirubin 1.0 AST 18 ALT 31 Alkaline Phosphatase 43 L Troponin I < 0.02 Total Protein 6.7 Albumin 3.3 L Urine Color Straw Urine Appearance Clear Urine pH 7.0 D Ur Specific [place] 1.010 Urine Protein Negative Urine Glucose (UA) Negative Urine Ketones Negative Urine Blood Negative Urine Nitrite Negative Urine Bilirubin Negative Urine Urobilinogen Negative Ur Leukocyte Esterase Negative 11/17/16 11/17/16 16:01 22:11 WBC RBC Hgb Hct MCV MCHC RDW Plt Count MPV Neutrophils % Lymphocytes % Monocytes % Eosinophils % Basophils % Sodium Potassium Chloride Carbon Dioxide Anion Gap BUN Creatinine Creat Clearance w eGFR POC Glucometer 140 169 Random Glucose Calcium Magnesium Total Bilirubin AST ALT Alkaline Phosphatase Troponin I Total Protein Albumin Urine Color Urine Appearance Urine pH Ur Specific [place] Urine Protein Urine Glucose (UA) Urine Ketones Urine Blood Urine Nitrite Urine Bilirubin Urine Urobilinogen Ur Leukocyte Esterase plan : REPLACE HORMONES SOLUCORTEF IV Q8 HRS SYNTHROID 112MCG CHECK TSH FREE T4 CK PROLACTIN CK IGF1 GH LEVEL
[2016-11-18] MEDS: ALBUTEROL SO4 2.5/IPRATROPIUM 0.5 INH SOL 3 ML VIAL.NEB. NEB SCH ×4 (00:52→17:14)
[2016-11-18] MEDS: HYDROCORTISONE SOD SUCCINATE 100 MG/2 ML VIAL IVPB SCH ×3 (01:40→17:48)
[2016-11-18] MEDS: LEVOTHYROXINE NA 112 MCG TABLET (FP) PO SCH (06:37)
[2016-11-18] MEDS: INSULIN SLIDING SCALE (NOVOLOG) 1 VIAL SQ SCH ×3 (06:37→22:17)
[2016-11-18 08:14] LABS: FREE T4 1.03 ng/dl (0.76-1.16); THYROID STIMULATING HORMONE 0.11 uIU/ml (0.358-3.74)
[2016-11-18] MEDS: FUROSEMIDE 40 MG/4 ML INJECTABLE VIAL IVPB SCH (10:12)
[2016-11-18] MEDS: RIVAROXABAN 15 MG TABLET PO SCH (10:13)
[2016-11-18] MEDS: DOCUSATE SODIUM 100 MG CAPSULE (FP) PO SCH (10:13)
[2016-11-18] MEDS: CARVEDILOL 6.25 MG TABLET (FP) PO SCH ×2 (10:13→22:17)
[2016-11-18] MEDS: BUDESONIDE/FORMETEROL FUMARATE 160/4.5 mcg INHALER IH SCH ×2 (10:14→22:16)
[2016-11-18] MEDS: LORATADINE 10 MG TABLET PO SCH (10:14)
--- NOTE | 2016-11-18 11:52 | PN ---
Progress Note, Physician History of Present Illness: FEELS BETTER - Current Medication List Current Medications: Active Medications Acetaminophen (Tylenol -) 650 mg PO Q6H PRN PRN Reason: FEVER OR PAIN Albuterol/Ipratropium (Duoneb -) 1 amp NEB QIDR [facility] Last Admin: 11/18/16 11:10 Dose: 1 amp Atorvastatin Calcium (Lipitor -) 10 mg PO HS [facility] Last Admin: 11/17/16 22:12 Dose: 10 mg Budesonide/Formoterol Fumarate (Symbicort 160/4.5mcg -) 2 puff IH BID [facility] Last Admin: 11/18/16 10:14 Dose: 2 inh Carvedilol (Coreg -) 6.25 mg PO BID [facility] Last Admin: 11/18/16 10:13 Dose: 6.25 mg Cholecalciferol (Vitamin D3 -) 400 unit PO DAILY [facility] Last Admin: 11/17/16 09:14 Dose: 400 unit Docusate Sodium (Colace -) 200 mg PO DAILY [facility] Last Admin: 11/18/16 10:13 Dose: 200 mg Fluticasone Propionate (Flonase -) 2 spray NS DAILY [facility] Last Admin: 11/17/16 12:52 Dose: 2 sprays Furosemide (Lasix Injection -) 40 mg IVPB DAILY [facility] Last Admin: 11/18/16 10:12 Dose: 40 mg Hydrocortisone Sodium Succinate (Solu-Cortef -) 100 mg IVPB Q8H [facility] Last Admin: 11/18/16 08:28 Dose: 100 mg Insulin Aspart (Novolog Vial Sliding Scale -) 1 vial SQ ACHS [facility] PRN Reason: Protocol Last Admin: 11/18/16 06:37 Dose: Not Given Levothyroxine Sodium (Synthroid -) 112 mcg PO DAILY@0700 [facility] Last Admin: 11/18/16 06:37 Dose: 112 mcg Loratadine (Claritin -) 10 mg PO DAILY [facility] Last Admin: 11/18/16 10:14 Dose: 10 mg Polyethylene Glycol (Miralax (For Daily Use) -) 17 gm PO DAILY [facility] Last Admin: 11/17/16 12:52 Dose: 17 gm Rivaroxaban (Xarelto -) 15 mg PO DAILY [facility] Last Admin: 11/18/16 10:13 Dose: 15 mg - Objective Vital Signs: Vital Signs Temperature 97.9 F 11/18/16 08:26 Pulse Rate 89 11/18/16 11:10 Respiratory Rate 20 11/18/16 08:26 Blood Pressure 115/70 11/18/16 08:26 O2 Sat by Pulse Oximetry (%) 95 11/18/16 11:10 Cardiovascular: Yes: S1, S2 Respiratory: Yes: Regular, Diminished, On Nasal O2 Labs: CBC, BMP 11/17/16 06:00 11/17/16 06:00 INR, PTT INR 1.11 (0.82-1.09) 11/16/16 16:27 Problem List - Problems (1) CHF (congestive heart failure) Assessment/Plan: IV LASIX CARDIO ECHO Code(s): I50.9 - HEART FAILURE, UNSPECIFIED (2) Weakness Assessment/Plan: PT Code(s): R53.1 - WEAKNESS (3) CKD (chronic kidney disease) Assessment/Plan: MONITOR RENAL FUNCTION ON DIURETICS Code(s): N18.9 - CHRONIC KIDNEY DISEASE, UNSPECIFIED Qualifiers: Chronic kidney disease stage: stage 2 (mild) Qualified Code(s): N18.2 - Chronic kidney disease, stage 2 (mild) (4) Dilated cardiomyopathy Assessment/Plan: ECHO--EF 39 %--DILATED AORTA CARDIO Code(s): I42.0 - DILATED CARDIOMYOPATHY (5) Dyspnea Assessment/Plan: ABOVE Code(s): R06.00 - DYSPNEA, UNSPECIFIED (6) Hypothyroid Assessment/Plan: ON SYNTHROID ENDO Code(s): E03.9 - HYPOTHYROIDISM, UNSPECIFIED (7) Panhypopituitarism Assessment/Plan: ON SYNTHROID AND SOLUORTEF ENDO Code(s): E23.0 - HYPOPITUITARISM (8) Ventricular arrhythmia Assessment/Plan: ON TELE CARDIO F/U LYTES WNL Code(s): I49.9 - CARDIAC ARRHYTHMIA, UNSPECIFIED
[2016-11-18 12:42] LABS: ANION GAP 10 (8-16); CALCIUM 9.1 mg/dL (8.5-10.1); CO2 25 mmol/L (21-32); CREATININE 1.7 mg/dL (0.7-1.3); GLUCOSE,RANDOM 118 mg/dL (74-106)
--- NOTE | 2016-11-18 13:45 | PN ---
Progress Note (short form) - Note Progress Note: Breathing feels better today. No CP. No acute events overnight. Intake & Output 11/15/16 11/16/16 11/17/16 11/18/16 23:59 23:59 23:59 23:59 Intake Total 130 290 50 Output Total 525 2000 Balance -395 -1710 50 Weight 250 lb 249 lb 260 lb Last Vital Signs Temp Pulse Resp BP Pulse Ox 97.9 F 89 20 115/70 95 11/18/16 08:26 11/18/16 11:10 11/18/16 08:26 11/18/16 08:26 11/18/16 11:10 Active Medications Acetaminophen (Tylenol -) 650 mg PO Q6H PRN PRN Reason: FEVER OR PAIN Albuterol/Ipratropium (Duoneb -) 1 amp NEB QIDR [facility] Last Admin: 11/18/16 11:10 Dose: 1 amp Atorvastatin Calcium (Lipitor -) 10 mg PO HS [facility] Last Admin: 11/17/16 22:12 Dose: 10 mg Budesonide/Formoterol Fumarate (Symbicort 160/4.5mcg -) 2 puff IH BID [facility] Last Admin: 11/18/16 10:14 Dose: 2 inh Carvedilol (Coreg -) 6.25 mg PO BID [facility] Last Admin: 11/18/16 10:13 Dose: 6.25 mg Cholecalciferol (Vitamin D3 -) 400 unit PO DAILY [facility] Last Admin: 11/17/16 09:14 Dose: 400 unit Docusate Sodium (Colace -) 200 mg PO DAILY [facility] Last Admin: 11/18/16 10:13 Dose: 200 mg Fluticasone Propionate (Flonase -) 2 spray NS DAILY [facility] Last Admin: 11/17/16 12:52 Dose: 2 sprays Furosemide (Lasix Injection -) 40 mg IVPB DAILY [facility] Last Admin: 11/18/16 10:12 Dose: 40 mg Hydrocortisone Sodium Succinate (Solu-Cortef -) 100 mg IVPB Q8H [facility] Last Admin: 11/18/16 08:28 Dose: 100 mg Insulin Aspart (Novolog Vial Sliding Scale -) 1 vial SQ ACHS [facility] PRN Reason: Protocol Last Admin: 11/18/16 06:37 Dose: Not Given Levothyroxine Sodium (Synthroid -) 112 mcg PO DAILY@0700 [facility] Last Admin: 11/18/16 06:37 Dose: 112 mcg Loratadine (Claritin -) 10 mg PO DAILY [facility] Last Admin: 11/18/16 10:14 Dose: 10 mg Polyethylene Glycol (Miralax (For Daily Use) -) 17 gm PO DAILY [facility] Last Admin: 11/17/16 12:52 Dose: 17 gm Rivaroxaban (Xarelto -) 15 mg PO DAILY [facility] Last Admin: 11/18/16 10:13 Dose: 15 mg Constitutional: Yes: NAD Eyes: Yes: EOM Intact HENT: Yes: Normocephalic Neck: Yes: Trachea Midline Cardiovascular: Yes: Tachycardia, Pulse Irregular Respiratory: Yes: Bibasilar rales/rhonchi Gastrointestinal: No: Soft ...Rectal Exam: Yes: Deferred Renal/: Yes: WNL Breast(s): Yes: WNL Musculoskeletal: Yes: Muscle Weakness Extremities: Yes: WNL Edema: No Integumentary: Yes: WNL Neurological: Yes: Alert, Oriented Psychiatric: Yes: Alert Labs Laboratory Results - last 24 hr 11/17/16 11/17/16 11/18/16 16:01 22:11 05:31 Sodium Potassium Chloride Carbon Dioxide Anion Gap BUN Creatinine POC Glucometer 140 169 124 Random Glucose Calcium TSH Free T4 11/18/16 11/18/16 11/18/16 07:19 11:28 12:09 Sodium 137 Potassium 3.9 Chloride 102 Carbon Dioxide 25 Anion Gap 10 BUN 18 Creatinine 1.7 H POC Glucometer 124 Random Glucose 118 H D Calcium 9.1 TSH 0.11 L D Free T4 1.03 Problem List - Problems (1) CHF (congestive heart failure) Assessment/Plan: Code(s): I50.9 - HEART FAILURE, UNSPECIFIED (2) Weakness Assessment/Plan: Code(s): R53.1 - WEAKNESS (3) CKD (chronic kidney disease) Assessment/Plan: Code(s): N18.9 - CHRONIC KIDNEY DISEASE, UNSPECIFIED Qualifiers: Chronic kidney disease stage: stage 2 (mild) Qualified Code(s): N18.2 - Chronic kidney disease, stage 2 (mild) (4) Dilated cardiomyopathy Assessment/Plan: Code(s): I42.0 - DILATED CARDIOMYOPATHY (5) Dyspnea Assessment/Plan: Code(s): R06.00 - DYSPNEA, UNSPECIFIED (6) Hypothyroid Assessment/Plan: Code(s): E03.9 - HYPOTHYROIDISM, UNSPECIFIED (7) Panhypopituitarism Assessment/Plan: Code(s): E23.0 - HYPOPITUITARISM (8) Ventricular arrhythmia Assessment/Plan: Code(s): I49.9 - CARDIAC ARRHYTHMIA, UNSPECIFIED PLAN LASIX O2 INHALED BRONCHODILATORS SOLUCORTEF HORMONAL REPLACEMENT DAILY [facility] MONITOR MIREYA HERCULES
[2016-11-18] MEDS: POLYETHYLENE GLYCOL 3350 119 GM BTL PO SCH (17:49)
[2016-11-18] MEDS ORDERED: PT OWN MED DRAWER 7, Y5N ONE ×2 (19:24→22:13)
[2016-11-18] MEDS: CHOLECALCIFEROL (VITAMIN D3) 400 UNIT TABLET (FP) PO SCH (19:30)
[2016-11-18] MEDS: FLUTICASONE PROP 0.05% 16 GM NASAL SPRAY NS SCH (22:17)
[2016-11-18] MEDS: ATORVASTATIN CA 10 MG TABLET (FP) PO SCH (22:17)
[2016-11-19] MEDS: HYDROCORTISONE SOD SUCCINATE 100 MG/2 ML VIAL IVPB SCH ×2 (02:59→09:30)
[2016-11-19] MEDS: ALBUTEROL SO4 2.5/IPRATROPIUM 0.5 INH SOL 3 ML VIAL.NEB. NEB SCH ×3 (06:30→11:39)
[2016-11-19 06:36] LABS: PROLACTIN 6.2 ng/mL (4.0-15.2)
[2016-11-19] MEDS: INSULIN SLIDING SCALE (NOVOLOG) 1 VIAL SQ SCH ×3 (06:41→12:00)
[2016-11-19] MEDS: LEVOTHYROXINE NA 112 MCG TABLET (FP) PO SCH (06:43)
[2016-11-19] MEDS ORDERED: PT OWN MED DRAWER 7, Y5N ONE ×2 (06:58→09:25)
[2016-11-19 07:39] LABS: BASOPHIL 0.2 % (0-2.0); MCH 31.3 pg (25.7-33.7); MCHC 33.9 g/dl (32.0-35.9); MEAN CELL VOLUME 92.2 fl (80-96); MEAN PLT VOLUME 9.1 fl (7.5-11.1); NEUTROPHILS 87.4 % (42.8-82.8); PLATELET COUNT 171 K/MM3 (134-434); RDW 17.3 % (11.9-15.9); WHITE BLOOD COUNT 10.9 K/mm3 (4.0-10.0)
[2016-11-19 08:20] LABS: ALBUMIN 3.4 g/dl (3.4-5.0); ALK PHOS 40 U/L (45-117); ANION GAP 12 (8-16); BILIRUBIN,TOTAL 0.7 mg/dL (0.2-1.0); CALCIUM 8.9 mg/dL (8.5-10.1); CO2 27 mmol/L (21-32); CREATININE 1.8 mg/dL (0.7-1.3); GLUCOSE,RANDOM 94 mg/dL (74-106); SGOT/AST 16 U/L (15-37); SGPT/ALT 28 U/L (12-78); TOT PROT 6.6 g/dl (6.4-8.2)
[2016-11-19] MEDS: FUROSEMIDE 40 MG/4 ML INJECTABLE VIAL IVPB SCH (09:30)
[2016-11-19] MEDS: CHOLECALCIFEROL (VITAMIN D3) 400 UNIT TABLET (FP) PO SCH (09:30)
[2016-11-19] MEDS: LORATADINE 10 MG TABLET PO SCH (09:31)
[2016-11-19] MEDS: DOCUSATE SODIUM 100 MG CAPSULE (FP) PO SCH (09:31)
[2016-11-19] MEDS: RIVAROXABAN 15 MG TABLET PO SCH (09:31)
[2016-11-19] MEDS: FLUTICASONE PROP 0.05% 16 GM NASAL SPRAY NS SCH (09:32)
[2016-11-19] MEDS: CARVEDILOL 6.25 MG TABLET (FP) PO SCH (09:32)
[2016-11-19] MEDS: BUDESONIDE/FORMETEROL FUMARATE 160/4.5 mcg INHALER IH SCH (09:32)
--- NOTE | 2016-11-19 10:22 | PN ---
Progress Note, Physician History of Present Illness: The patient is sitting comfortably at the bedside. He stated the his breathing improved. - Current Medication List Current Medications: Active Medications Acetaminophen (Tylenol -) 650 mg PO Q6H PRN PRN Reason: FEVER OR PAIN Albuterol/Ipratropium (Duoneb -) 1 amp NEB QIDR [facility] Last Admin: 11/19/16 06:30 Dose: 1 amp Atorvastatin Calcium (Lipitor -) 10 mg PO HS [facility] Last Admin: 11/18/16 22:17 Dose: 10 mg Budesonide/Formoterol Fumarate (Symbicort 160/4.5mcg -) 2 puff IH BID [facility] Last Admin: 11/19/16 09:32 Dose: 2 inh Carvedilol (Coreg -) 6.25 mg PO BID [facility] Last Admin: 11/19/16 09:32 Dose: 6.25 mg Cholecalciferol (Vitamin D3 -) 400 unit PO DAILY [facility] Last Admin: 11/19/16 09:30 Dose: 400 unit Docusate Sodium (Colace -) 200 mg PO DAILY [facility] Last Admin: 11/19/16 09:31 Dose: 200 mg Fluticasone Propionate (Flonase -) 2 spray NS DAILY [facility] Last Admin: 11/19/16 09:32 Dose: 2 sprays Furosemide (Lasix Injection -) 40 mg IVPB DAILY [facility] Last Admin: 11/19/16 09:30 Dose: 40 mg Hydrocortisone Sodium Succinate (Solu-Cortef -) 100 mg IVPB Q8H [facility] Last Admin: 11/19/16 09:30 Dose: 100 mg Insulin Aspart (Novolog Vial Sliding Scale -) 1 vial SQ ACHS [facility] PRN Reason: Protocol Last Admin: 11/19/16 06:41 Dose: Not Given Levothyroxine Sodium (Synthroid -) 112 mcg PO DAILY@0700 [facility] Last Admin: 11/19/16 06:43 Dose: 112 mcg Loratadine (Claritin -) 10 mg PO DAILY [facility] Last Admin: 11/19/16 09:31 Dose: 10 mg Polyethylene Glycol (Miralax (For Daily Use) -) 17 gm PO DAILY [facility] Last Admin: 11/18/16 17:49 Dose: 17 gm Rivaroxaban (Xarelto -) 15 mg PO DAILY [facility] Last Admin: 11/19/16 09:31 Dose: 15 mg - Objective Vital Signs: Vital Signs Temperature 97.8 F 11/19/16 06:00 Pulse Rate 96 H 11/19/16 08:09 Respiratory Rate 20 11/19/16 08:09 Blood Pressure 125/81 11/19/16 08:09 O2 Sat by Pulse Oximetry (%) 96 11/18/16 21:00 Constitutional: Yes: Well Nourished, Calm Eyes: Yes: WNL HENT: Yes: WNL Neck: Yes: WNL, Supple Cardiovascular: Yes: Pulse Irregular, S1, S2. No: Regular Rate and Rhythm Respiratory: Yes: Regular, CTA Bilaterally Gastrointestinal: Yes: WNL ...Rectal Exam: Yes: Deferred Musculoskeletal: Yes: WNL Extremities: Yes: WNL Edema: No Peripheral Pulses WNL: Yes Integumentary: Yes: WNL Neurological: Yes: WNL ...Motor Strength: WNL Labs: CBC, BMP 11/19/16 05:35 11/19/16 05:35 INR, PTT INR 1.11 (0.82-1.09) 11/16/16 16:27 Assessment/Plan The patient is breathing comfortably. Ventricular rates are well controlled in afib. Continue IV lasix. Salt and fluid restrictions. Responding to treatment.
[2016-11-19] MEDS: POLYETHYLENE GLYCOL 3350 119 GM BTL PO SCH (11:52)
--- NOTE | 2016-11-19 14:12 | PN ---
Progress Note, Physician History of Present Illness: FEELS BETTER - Current Medication List Current Medications: Active Medications Acetaminophen (Tylenol -) 650 mg PO Q6H PRN PRN Reason: FEVER OR PAIN Albuterol/Ipratropium (Duoneb -) 1 amp NEB QIDR [facility] Last Admin: 11/19/16 11:39 Dose: Not Given Atorvastatin Calcium (Lipitor -) 10 mg PO HS [facility] Last Admin: 11/18/16 22:17 Dose: 10 mg Budesonide/Formoterol Fumarate (Symbicort 160/4.5mcg -) 2 puff IH BID [facility] Last Admin: 11/19/16 09:32 Dose: 2 inh Carvedilol (Coreg -) 6.25 mg PO BID [facility] Last Admin: 11/19/16 09:32 Dose: 6.25 mg Cholecalciferol (Vitamin D3 -) 400 unit PO DAILY [facility] Last Admin: 11/19/16 09:30 Dose: 400 unit Docusate Sodium (Colace -) 200 mg PO DAILY [facility] Last Admin: 11/19/16 09:31 Dose: 200 mg Fluticasone Propionate (Flonase -) 2 spray NS DAILY [facility] Last Admin: 11/19/16 09:32 Dose: 2 sprays Furosemide (Lasix Injection -) 40 mg IVPB DAILY [facility] Last Admin: 11/19/16 09:30 Dose: 40 mg Hydrocortisone Sodium Succinate (Solu-Cortef -) 100 mg IVPB Q8H [facility] Last Admin: 11/19/16 09:30 Dose: 100 mg Insulin Aspart (Novolog Vial Sliding Scale -) 1 vial SQ ACHS [facility] PRN Reason: Protocol Last Admin: 11/19/16 12:00 Dose: Not Given Levothyroxine Sodium (Synthroid -) 112 mcg PO DAILY@0700 [facility] Last Admin: 11/19/16 06:43 Dose: 112 mcg Loratadine (Claritin -) 10 mg PO DAILY [facility] Last Admin: 11/19/16 09:31 Dose: 10 mg Polyethylene Glycol (Miralax (For Daily Use) -) 17 gm PO DAILY [facility] Last Admin: 11/19/16 11:52 Dose: 17 gm Rivaroxaban (Xarelto -) 15 mg PO DAILY [facility] Last Admin: 11/19/16 09:31 Dose: 15 mg - Objective Vital Signs: Vital Signs Temperature 97.8 F 11/19/16 06:00 Pulse Rate 81 11/19/16 11:39 Respiratory Rate 20 11/19/16 08:09 Blood Pressure 125/81 11/19/16 08:09 O2 Sat by Pulse Oximetry (%) 94 L 11/19/16 11:39 Cardiovascular: Yes: Pulse Irregular, S1, S2 Respiratory: Yes: Regular, CTA Bilaterally Gastrointestinal: Yes: Normal Bowel Sounds, Soft Edema: No Neurological: Yes: Alert, Oriented Labs: CBC, BMP 11/19/16 05:35 11/19/16 05:35 INR, PTT INR 1.11 (0.82-1.09) 11/16/16 16:27 Problem List - Problems (1) CHF (congestive heart failure) Assessment/Plan: IV LASIX CARDIO ECHO Code(s): I50.9 - HEART FAILURE, UNSPECIFIED (2) Weakness Assessment/Plan: PT Code(s): R53.1 - WEAKNESS (3) CKD (chronic kidney disease) Assessment/Plan: MONITOR RENAL FUNCTION ON DIURETICS Code(s): N18.9 - CHRONIC KIDNEY DISEASE, UNSPECIFIED Qualifiers: Chronic kidney disease stage: stage 2 (mild) Qualified Code(s): N18.2 - Chronic kidney disease, stage 2 (mild) (4) Dilated cardiomyopathy Assessment/Plan: ECHO--EF 39 %--DILATED AORTA CARDIO Code(s): I42.0 - DILATED CARDIOMYOPATHY (5) Dyspnea Assessment/Plan: ABOVE Code(s): R06.00 - DYSPNEA, UNSPECIFIED (6) Hypothyroid Assessment/Plan: ON SYNTHROID ENDO Code(s): E03.9 - HYPOTHYROIDISM, UNSPECIFIED (7) Panhypopituitarism Assessment/Plan: ON SYNTHROID AND SOLUORTEF ENDO Code(s): E23.0 - HYPOPITUITARISM (8) Ventricular arrhythmia Assessment/Plan: ON TELE CARDIO F/U LYTES WNL Code(s): I49.9 - CARDIAC ARRHYTHMIA, UNSPECIFIED
--- NOTE | 2016-11-19 15:51 | PN ---
Progress Note (short form) - Note Progress Note: Breathing feels a little better today. No CP. No acute events overnight. Intake & Output 11/16/16 11/17/16 11/18/16 11/19/16 23:59 23:59 23:59 23:59 Intake Total 130 290 610 Output Total 525 2000 1400 1000 Balance -395 -1710 -790 -1000 Weight 250 lb 249 lb 260 lb 252 lb Last Vital Signs Temp Pulse Resp BP Pulse Ox 98 F 92 H 20 131/65 94 L 11/19/16 14:47 11/19/16 14:47 11/19/16 14:47 11/19/16 14:47 11/19/16 11:39 Active Medications Acetaminophen (Tylenol -) 650 mg PO Q6H PRN PRN Reason: FEVER OR PAIN Albuterol/Ipratropium (Duoneb -) 1 amp NEB QIDR [facility] Last Admin: 11/19/16 11:39 Dose: Not Given Atorvastatin Calcium (Lipitor -) 10 mg PO HS [facility] Last Admin: 11/18/16 22:17 Dose: 10 mg Budesonide/Formoterol Fumarate (Symbicort 160/4.5mcg -) 2 puff IH BID [facility] Last Admin: 11/19/16 09:32 Dose: 2 inh Carvedilol (Coreg -) 6.25 mg PO BID [facility] Last Admin: 11/19/16 09:32 Dose: 6.25 mg Cholecalciferol (Vitamin D3 -) 400 unit PO DAILY [facility] Last Admin: 11/19/16 09:30 Dose: 400 unit Docusate Sodium (Colace -) 200 mg PO DAILY [facility] Last Admin: 11/19/16 09:31 Dose: 200 mg Fluticasone Propionate (Flonase -) 2 spray NS DAILY [facility] Last Admin: 11/19/16 09:32 Dose: 2 sprays Furosemide (Lasix Injection -) 40 mg IVPB DAILY [facility] Last Admin: 11/19/16 09:30 Dose: 40 mg Hydrocortisone Sodium Succinate (Solu-Cortef -) 100 mg IVPB Q8H [facility] Last Admin: 11/19/16 09:30 Dose: 100 mg Insulin Aspart (Novolog Vial Sliding Scale -) 1 vial SQ ACHS [facility] PRN Reason: Protocol Last Admin: 11/19/16 12:00 Dose: Not Given Levothyroxine Sodium (Synthroid -) 112 mcg PO DAILY@0700 [facility] Last Admin: 11/19/16 06:43 Dose: 112 mcg Loratadine (Claritin -) 10 mg PO DAILY [facility] Last Admin: 11/19/16 09:31 Dose: 10 mg Polyethylene Glycol (Miralax (For Daily Use) -) 17 gm PO DAILY [facility] Last Admin: 11/19/16 11:52 Dose: 17 gm Rivaroxaban (Xarelto -) 15 mg PO DAILY [facility] Last Admin: 11/19/16 09:31 Dose: 15 mg Constitutional: Yes: NAD Eyes: Yes: EOM Intact HENT: Yes: Normocephalic Neck: Yes: Trachea Midline Cardiovascular: Yes: Tachycardia, Pulse Irregular Respiratory: Yes: Bibasilar rales/rhonchi Gastrointestinal: No: Soft ...Rectal Exam: Yes: Deferred Renal/: Yes: WNL Breast(s): Yes: WNL Musculoskeletal: Yes: Muscle Weakness Extremities: Yes: WNL Edema: No Integumentary: Yes: WNL Neurological: Yes: Alert, Oriented Psychiatric: Yes: Alert Labs Laboratory Results - last 24 hr 11/18/16 11/18/16 11/18/16 07:19 16:03 22:15 WBC RBC Hgb Hct MCV MCHC RDW Plt Count MPV Neutrophils % Lymphocytes % Monocytes % Eosinophils % Basophils % Sodium Potassium Chloride Carbon Dioxide Anion Gap BUN Creatinine Creat Clearance w eGFR POC Glucometer 107 105 Random Glucose Calcium Total Bilirubin AST ALT Alkaline Phosphatase Total Protein Albumin Prolactin 6.2 11/19/16 11/19/16 11/19/16 05:35 05:35 06:14 WBC 10.9 H D RBC 4.35 Hgb 13.6 Hct 40.1 MCV 92.2 MCHC 33.9 RDW 17.3 H Plt Count 171 MPV 9.1 Neutrophils % 87.4 H Lymphocytes % 7.3 L Monocytes % 5.1 Eosinophils % 0.0 D Basophils % 0.2 Sodium 140 Potassium 3.7 Chloride 101 Carbon Dioxide 27 Anion Gap 12 BUN 20 H Creatinine 1.8 H Creat Clearance w eGFR 36.97 POC Glucometer 103 Random Glucose 94 D Calcium 8.9 Total Bilirubin 0.7 D AST 16 ALT 28 Alkaline Phosphatase 40 L Total Protein 6.6 Albumin 3.4 Prolactin 11/19/16 11:14 WBC RBC Hgb Hct MCV MCHC RDW Plt Count MPV Neutrophils % Lymphocytes % Monocytes % Eosinophils % Basophils % Sodium Potassium Chloride Carbon Dioxide Anion Gap BUN Creatinine Creat Clearance w eGFR POC Glucometer 99 Random Glucose Calcium Total Bilirubin AST ALT Alkaline Phosphatase Total Protein Albumin Prolactin Problem List - Problems (1) CHF (congestive heart failure) Assessment/Plan: Code(s): I50.9 - HEART FAILURE, UNSPECIFIED (2) Weakness Assessment/Plan: Code(s): R53.1 - WEAKNESS (3) CKD (chronic kidney disease) Assessment/Plan: Code(s): N18.9 - CHRONIC KIDNEY DISEASE, UNSPECIFIED Qualifiers: Chronic kidney disease stage: stage 2 (mild) Qualified Code(s): N18.2 - Chronic kidney disease, stage 2 (mild) (4) Dilated cardiomyopathy Assessment/Plan: Code(s): I42.0 - DILATED CARDIOMYOPATHY (5) Dyspnea Assessment/Plan: Code(s): R06.00 - DYSPNEA, UNSPECIFIED (6) Hypothyroid Assessment/Plan: Code(s): E03.9 - HYPOTHYROIDISM, UNSPECIFIED (7) Panhypopituitarism Assessment/Plan: Code(s): E23.0 - HYPOPITUITARISM (8) Ventricular arrhythmia Assessment/Plan: Code(s): I49.9 - CARDIAC ARRHYTHMIA, UNSPECIFIED PLAN LASIX O2 INHALED BRONCHODILATORS SOLUCORTEF HORMONAL REPLACEMENT DAILY [facility] MONITOR MIREYA HERCULES
[2016-11-19 19:16] VITALS: BP 120/70; PULSE 109; TEMP 98.8
== END 2016-11-19 17:19 | disposition left against medical advice (07) | DRG 291 ==
LOC: JER 16:25 → JERBED 19:55 → J4W 21:21
PROVIDERS: ADMIT Family Medicine; ATTEND Family Medicine
DX: I13.0 Hypertensive heart and chronic kidney disease with heart failure and stage 1 through stage 4 chronic kidney disease, or unspecified chronic kidney disease (principal); I50.43 Acute on chronic combined systolic (congestive) and diastolic (congestive) heart failure; E23.0 Hypopituitarism; I48.91 Unspecified atrial fibrillation; F03.90 Unspecified dementia, unspecified severity, without behavioral disturbance, psychotic disturbance, mood disturbance, and anxiety; E78.5 Hyperlipidemia, unspecified; M41.9 Scoliosis, unspecified; E22.0 Acromegaly and pituitary gigantism; I42.0 Dilated cardiomyopathy; I49.9 Cardiac arrhythmia, unspecified; N18.2 Chronic kidney disease, stage 2 (mild); J44.9 Chronic obstructive pulmonary disease, unspecified; I71.2 Thoracic aortic aneurysm, without rupture; I69.391 Dysphagia following cerebral infarction; I34.0 Nonrheumatic mitral (valve) insufficiency; E66.8 Other obesity; Z68.32 Body mass index [BMI] 32.0-32.9, adult; Z87.891 Personal history of nicotine dependence
CPT/HCPCS: 36415; 36600; 70450-TC; 71010-TC; 80048; 80053; 81003; 82375; 82550; 82803; 83050; 83520; 83735; 83880; 84146; 84305; 84439; 84443; 84484; 85025; 85610; 93005; 93010; 93306-TC; 94640; 99283-25